=== PATIENT | female | born 1930 | race Caucasian/White ===

== ENCOUNTER 2016-09-02 21:36 | Emergency (ER) | payer OTHER, BC ==
--- NOTE | 2016-09-02 21:43 | PDOC ---
History of Present Illness - General History Source: Patient Exam Limitations: No Limitations - History of Present Illness Initial Comments: 09/02/16 21:43 The patient is a 86 year old female with a significant past medical history of HTN, HLD, who presents to the ED via EMS s/p fall. Patient states she slipt and fell when she was in her kitchen. She complains of left hand, left elbow, and right lower buttock pain. She denies head trauma, neck pain. She denies losing consciousness. She denies nausea, vomiting, diarrhea, hematochezia. <Morgan Rene - Last Filed: 09/02/16 21:43> - General History Source: Patient Exam Limitations: No Limitations <Donny Leary - Last Filed: 09/03/16 05:57> - General Chief Complaint: Pain, Acute Stated Complaint: TRIPPED AND FELL INJURING LEFT HAND, ELBOW AND BUT Time Seen by Provider: 09/02/16 21:39 Past History <Morgan Rene - Last Filed: 09/02/16 21:43> - Past Medical History Cardiac Disorders: Yes (BY PASS) HTN: Yes - Psycho/Social/Smoking Cessation Hx Anxiety: No Suicidal Ideation: No Smoking Status: No Smoking History: Never smoked Number of Cigarettes Smoked Daily: 0 <Donny Leary - Last Filed: 09/03/16 05:57> - Past Medical History Allergies/Adverse Reactions: Allergies Allergy/AdvReac Type Severity Reaction Status Date / Time acetaminophen [From Percocet] Allergy Verified 09/02/16 21:39 oxycodone HCl [From Percocet] Allergy Verified 09/02/16 21:39 Penicillins Allergy Verified 09/02/16 21:39 propoxyphene HCl Allergy Verified 09/02/16 21:39 [From Darvon] Home Medications: Ambulatory Orders Aspirin [ASA -] 81 mg PO DAILY 12/16/12 Metoprolol Succinate [Toprol XL] 50 mg PO HS 12/16/12 Metoprolol Succinate [Toprol XL] 100 mg PO DAILY 12/16/12 Omeprazole Magnesium [Prilosec (OTC)] 20 mg PO DAILY 12/16/12 Oxybutynin Chloride 5 mg PO BID 12/16/12 Quinapril HCl [Accupril] 5 mg PO DAILY 12/16/12 Simvastatin [Zocor] 40 mg PO HS 12/16/12 Review of Systems - Review of Systems Able to Perform ROS?: Yes Comments:: 09/02/16 21:44 GENERAL/CONSTITUTIONAL: No fever or chills. No weakness. HEAD, EYES, EARS, NOSE AND THROAT: No change in vision. No ear pain or discharge. No sore throat. CARDIOVASCULAR: No chest pain or shortness of breath. RESPIRATORY: No cough, wheezing, or hemoptysis. GASTROINTESTINAL: No nausea, vomiting, diarrhea or constipation. GENITOURINARY: No dysuria, frequency, or change in urination. MUSCULOSKELETAL: + lower back pain. + left hand pain. + left elbow pain. No joint or muscle swelling or pain. SKIN: No rash NEUROLOGIC: No headache, vertigo, loss of consciousness, or change in strength/ sensation. ENDOCRINE: No increased thirst. No abnormal weight change. HEMATOLOGIC/LYMPHATIC: No anemia, easy bleeding, or history of blood clots. ALLERGIC/IMMUNOLOGIC: No hives or skin allergy. <Morgan Rene - Last Filed: 09/02/16 21:43> *Physical Exam - Physical Exam Comments: 09/02/16 21:44 GENERAL: Awake, alert, and fully oriented, in no acute distress HEAD: No signs of trauma EYES: PERRLA, EOMI, sclera anicteric, conjunctiva clear ENT: Auricles normal inspection, hearing grossly normal, nares patent, oropharynx clear without exudates. Moist mucosa NECK: Normal ROM, supple, no lymphadenopathy, JVD, or masses LUNGS: Breath sounds equal, clear to auscultation bilaterally. No wheezes, and no crackles HEART: Regular rate and rhythm, normal S1 and S2, no murmurs, rubs or gallops ABDOMEN: Soft, nontender, normoactive bowel sounds. No guarding, no rebound. No masses EXTREMITIES: Normal range of motion, no edema. No clubbing or cyanosis. No cords, erythema, or tenderness NEUROLOGICAL: Cranial nerves II through XII grossly intact. Normal speech, normal gait SKIN: Warm, Dry, normal turgor, no rashes or lesions noted. <Morgan Rene - Last Filed: 09/02/16 21:43> ED Treatment Course - RADIOLOGY Radiology Studies Ordered: Category Date Time Status ELBOW-LEFT [RAD] Stat Radiology 09/02/16 21:40 Ordered HAND- LEFT [RAD] Stat Radiology 09/02/16 21:40 Ordered PELVIS [RAD] Stat Radiology 09/02/16 21:40 Ordered SPINE-LUMBAR SACRAL [RAD] Stat Radiology 09/02/16 21:40 Ordered <Donny Leary - Last Filed: 09/03/16 05:57> Medical Decision Making - Medical Decision Making 09/03/16 05:54 please note the following on PE: hematoma overlying dorsum of left hand without specific tenderness hematoma overlying dorsal surface of l elbow with abrasion no tenderness lower lumbar midline tenderness plain films without fx, as read by me local wound care for hematomas <Donny Leary - Last Filed: 09/03/16 05:57> *DC/Admit/Observation/Transfer - Attestations Scribe Attestion: 09/02/16 21:45 Documentation prepared by Morgan Rene, acting as medical i d sales for Donny Leary MD. <Morgan Rene - Last Filed: 09/02/16 21:43> <Donny Leary - Last Filed: 09/03/16 05:57> Diagnosis at time of Disposition: Hematoma - Discharge Dispostion Disposition: HOME Condition at time of disposition: Stable - Patient Instructions Printed Discharge Instructions: DI for Hematoma (Bruise)
[2016-09-02 21:58] VITALS: BP 140/75; PULSE 68; TEMP 98; BMI 33.1
== END 2016-09-02 23:47 | disposition home or self-care (01) ==
LOC: FER 21:36
DX: S50.02XA Contusion of left elbow, initial encounter (principal); S60.222A Contusion of left hand, initial encounter; W18.39XA Other fall on same level, initial encounter; Y93.9 Activity, unspecified; Y92.000 Kitchen of unspecified non-institutional (private) residence as the place of occurrence of the external cause; I10 Essential (primary) hypertension; E78.5 Hyperlipidemia, unspecified; Z95.1 Presence of aortocoronary bypass graft
CPT/HCPCS: 72100-TC; 72170-TC; 73070-TC-LT; 73130-TC-LT; 99281-25

== ENCOUNTER 2016-09-06 10:20 | Emergency (ER) | payer OTHER, BC ==
[2016-09-06 10:32] VITALS: BP 148/78; PULSE 83; TEMP 98.6; BMI 39.2
[2016-09-06] MEDS ORDERED: CEPHALEXIN MONOHYDRATE 500 MG CAPSULE (UD) PO ONE (10:41)
--- NOTE | 2016-09-06 10:42 | PDOC ---
History of Present Illness - General Chief Complaint: Pain Stated Complaint: LEFT ARM PAIN Time Seen by Provider: 09/06/16 10:26 - History of Present Illness Initial Comments: 09/06/16 10:45 Chief complaint: Increased pain and heat in the area of the left elbow History of present illness: Patient sustained an injury approximately 4 days ago , was treated in the emergency room for contusions of the left hand and elbow, no fracture was visualized, and the patient was treated with symptomatic care for contusions. Today she noted increased pain in the elbow with a sensation of warmth Review of systems: Denies fevers/chills, distal numbness tingling pain or weakness Past medical history: High blood pressure, elevated cholesterol, or Medications: Metoprolol, Accupril, simvastatin, oxybutynin ALLERGIES: Oxycodone, propoxyphene, and questionably penicillin. With regard to penicillin, the patient states that when she was very young she had an intramuscular injection that became inflamed at the injection site, and she was told she had a penicillin ALLERGY. There was no generalized rash or angioedema that she can recall. Social/family history reviewed and noncontributory Physical exam: Patient is alert oriented 3 well-developed well-nourished in no acute distress Afebrile, vital signs normal The left arm with old contusions and ecchymoses of the hand and elbow region. There is a 5 mm superficial abrasion that it appears to be healing over the olecranon, and what appears to be an olecranon bursitis, probably septic from the skin injury, which is tender and mildly indurated but without toyin fluctuance. There is full range of motion of the elbow, good pulses throughout the extremity, and no distal sensory or motor deficits Impression is olecranon bursitis, probably infected Plan empiric antibiotics, rest and elevation, warm compresses, and close follow- up. Consider aspiration if fluid accumulation or fluctuance appears. Patient fully ambulatory and without significant pain or other distress upon discharge to follow up as directed. Past History - Past Medical History Allergies/Adverse Reactions: Allergies Allergy/AdvReac Type Severity Reaction Status Date / Time oxycodone HCl [From Percocet] Allergy Verified 09/06/16 10:22 Penicillins Allergy Verified 09/06/16 10:22 propoxyphene HCl Allergy Verified 09/06/16 10:22 [From Darvon] Home Medications: Ambulatory Orders Aspirin [ASA -] 81 mg PO DAILY 12/16/12 Metoprolol Succinate [Toprol XL -] 50 mg PO AM 12/16/12 Metoprolol Succinate [Toprol XL -] 100 mg PO HS 12/16/12 Oxybutynin Chloride 5 mg PO BID 12/16/12 Quinapril HCl [Accupril -] 5 mg PO DAILY 12/16/12 Simvastatin [Zocor -] 40 mg PO HS 12/16/12 Cephalexin Monohydrate [Keflex] 500 mg PO Q6H #30 capsule 09/06/16 Cardiac Disorders: Yes (CAD) HTN: Yes - Surgical History Cardiac Surgery: Yes (VALVE REPLACEMENT, BYPASS SX) - Psycho/Social/Smoking Cessation Hx Anxiety: No Suicidal Ideation: No Smoking Status: No Smoking History: Never smoked Have you smoked in the past 12 months: No Number of Cigarettes Smoked Daily: 0 Hx Alcohol Use: No Drug/Substance Use Hx: No Substance Use Type: None *Physical Exam - Vital Signs Last Vital Signs Temp Pulse Resp BP Pulse Ox 98.6 F 83 18 148/78 96 09/06/16 10:20 09/06/16 10:20 09/06/16 10:20 09/06/16 10:20 09/06/16 10:20 *DC/Admit/Observation/Transfer Diagnosis at time of Disposition: Olecranon bursitis, left elbow - Discharge Dispostion Disposition: HOME Condition at time of disposition: Stable Admit: No - Prescriptions Prescriptions: Cephalexin Monohydrate [Keflex] 500 mg PO Q6H #30 capsule - Referrals Referrals: Ravinder Philip MD [Staff Physician] - 2 Days - Patient Instructions Printed Discharge Instructions: DI for Elbow Bursitis Additional Instructions: Rest and elevate left arm. Warm compresses. Antibiotics as directed. In 48 hours, if there is still pain, swelling, or redness, return to ER for recheck or see primary physician. If symptoms have resolved, continue
[2016-09-06] MEDS ORDERED: CEPHALEXIN MONOHYDRATE 500 MG CAPSULE (UD) ONE (10:47)
== END 2016-09-06 11:00 | disposition home or self-care (01) ==
LOC: FER 10:20
DX: M70.22 Olecranon bursitis, left elbow (principal); Y93.9 Activity, unspecified; I10 Essential (primary) hypertension; Z95.1 Presence of aortocoronary bypass graft; Z79.82 Long term (current) use of aspirin
CPT/HCPCS: 99283-25

== ENCOUNTER 2018-02-14 22:08 | Emergency (ER) | payer OTHER, BC ==
[2018-02-14 22:17] VITALS: BMI 39.2
--- NOTE | 2018-02-14 22:57 | PDOC ---
History of Present Illness - History of Present Illness Initial Comments: This patient is a 87 year old female with a PMHx of HTN, HLD, and arthritis, who was BIBA for head injury s/p fall. Patient states that her bathroom had flooded and she was trying to deal with that issue. She went to sit on a chair that tilts back and fell face forward. She was able to use life alert to call an ambulance. She states that she normally ambulates with a walker and cane. She states that she normally takes a baby aspirin but hasnt taken one in over a month. She denies any loss of consciousness, headache, neck pain (other than chronic issues), dysuria,fevers, chills, abdominal pain, cough, vomiting, diarrhea. Emergency contact: Shayna Ledesma (neighbor) [phone] PCP: Noel Owens - [address] [place] [address]. Social Hx: Lives at home alone. Surgical Hx: b/l total knee replacement. Heart valve replacement. Allergies: see nursing notes. <Angeline Loya - Last Filed: 02/14/18 23:52> <Oewn Diego - Last Filed: 02/15/18 06:46> - General Chief Complaint: Injury Stated Complaint: SLIP AND FALL Time Seen by Provider: 02/14/18 22:19 Past History <Angeline Loya - Last Filed: 02/14/18 23:52> - Past Medical History Cardiac Disorders: Yes (CAD) COPD: No HTN: Yes Other medical history: CHRONIC CELLULITIS - Surgical History Cardiac Surgery: Yes (VALVE REPLACEMENT, BYPASS SX) - Suicide/Smoking/Psychosocial Hx Smoking Status: No Smoking History: Never smoked Have you smoked in the past 12 months: No Number of Cigarettes Smoked Daily: 0 Hx Alcohol Use: No Drug/Substance Use Hx: No Substance Use Type: None <Owen Diego - Last Filed: 02/15/18 06:46> - Past Medical History Allergies/Adverse Reactions: Allergies Allergy/AdvReac Type Severity Reaction Status Date / Time oxycodone HCl [From Percocet] Allergy Verified 09/06/16 10:22 Penicillins Allergy Verified 09/06/16 10:22 propoxyphene HCl Allergy Verified 09/06/16 10:22 [From Darvon] Home Medications: Ambulatory Orders Aspirin [ASA -] 81 mg PO DAILY 12/16/12 Metoprolol Succinate [Toprol XL -] 50 mg PO AM 12/16/12 Metoprolol Succinate [Toprol XL -] 100 mg PO HS 12/16/12 Oxybutynin Chloride 5 mg PO BID 12/16/12 Quinapril HCl [Accupril -] 5 mg PO DAILY 12/16/12 Simvastatin [Zocor -] 40 mg PO HS 12/16/12 Cephalexin Monohydrate [Keflex] 500 mg PO Q6H #30 capsule 09/06/16 Review of Systems - Review of Systems Comments:: GENERAL/CONSTITUTIONAL: No fever or chills. No weakness. HEAD, EYES, EARS, NOSE AND THROAT: No change in vision. No ear pain or discharge. No sore throat. CARDIOVASCULAR: No chest pain or shortness of breath. RESPIRATORY: No cough, wheezing, or hemoptysis. GASTROINTESTINAL: No nausea, vomiting, diarrhea or constipation. GENITOURINARY: No dysuria, frequency, or change in urination. MUSCULOSKELETAL: No joint or muscle swelling or pain. No neck or back pain. SKIN: +lump on forehead. NEUROLOGIC: No headache, vertigo, loss of consciousness, or change in strength/ sensation. ENDOCRINE: No increased thirst. No abnormal weight change. HEMATOLOGIC/LYMPHATIC: No anemia, easy bleeding, or history of blood clots. ALLERGIC/IMMUNOLOGIC: No hives or skin allergy. <Agneline Loya - Last Filed: 02/14/18 23:52> *Physical Exam - Vital Signs Last Vital Signs Temp Pulse Resp BP Pulse Ox 98.1 F 90 18 144/67 98 02/14/18 22:11 02/14/18 22:11 02/14/18 22:11 02/14/18 22:11 02/14/18 22:11 - Physical Exam Comments: GENERAL: Awake, alert, and fully oriented, in no acute distress HEAD: Small right-sided forehead hematoma. EYES: PERRLA, EOMI, sclera anicteric, conjunctiva clear ENT: Abrasion to the bridge of the nose. Auricles normal inspection, hearing grossly normal, nares patent, oropharynx clear without exudates. Moist mucosa NECK: No c-spine tenderness. Normal ROM, supple, no lymphadenopathy, JVD, or masses LUNGS: Breath sounds equal, clear to auscultation bilaterally. No wheezes, and no crackles HEART: Regular rate and rhythm, normal S1 and S2, no murmurs, rubs or gallops ABDOMINOPELVIS: Pelvis is stable. No tenderness to hips. Soft, nontender, normoactive bowel sounds. No guarding, no rebound. No masses EXTREMITIES: Normal range of motion, no edema. No clubbing or cyanosis. No cords, erythema, or tenderness NEUROLOGICAL: Cranial nerves II through XII grossly intact. Normal speech, normal gait SKIN: Warm, Dry, normal turgor, no rashes noted. <Angeline Loya - Last Filed: 02/14/18 23:52> - Vital Signs Last Vital Signs Temp Pulse Resp BP Pulse Ox 98.1 F 90 18 144/67 98 02/14/18 22:11 02/14/18 22:11 02/14/18 22:11 02/14/18 22:11 02/14/18 22:11 <Owen Diego - Last Filed: 02/15/18 06:46> ED Treatment Course - RADIOLOGY Radiology Studies Ordered: Category Date Time Status HEAD CT WITHOUT CONTRAST [CT] Stat CT Scan 02/14/18 22:44 Ordered <Owen Diego - Last Filed: 02/15/18 06:46> Medical Decision Making - Medical Decision Making 02/14/18 23:51 A portion of this note was documented by scribe services under my direction. I have reviewed the details of the note, within reason, and agree with the documentation with the following case summary and management plan written by me. Patient treated in the ED. Patient arrives by ambulance to the emergency department. Nursing notes are reviewed and incorporated into the medical decision-making. Vital signs reviewed. Vital Signs Temp Pulse Resp BP Pulse Ox 98.1 F 90 18 144/67 98 02/14/18 22:11 02/14/18 22:11 02/14/18 22:11 02/14/18 22:11 02/14/18 22:11 87 year old female with Past medical history of arthritis, hypertension, hyperlipidemia, valve replacement presents with mechanical fall. The patient lives at home by herself and uses a walker. She is slipped and fell and landed and hit her head. No loss of conscious. No headache. Patient has last taken aspirin over a month ago. Denies any symptoms now. Patient was on the ground and activated the life alert. EMS came and brought the patient the ER. She denies any symptoms other than the hematoma on the forehead. There is no evidence of C-spine pain, pelvis or other injuries. We'll obtain a head CT and reassess. 02/15/18 01:[address] reviewed. No acute findings. 02/15/18 03:55 Pt ambulatory to the bathroom. She reports that she walks at baseline. The patient reports feeling well to ambulate. She requests to leave at [address] she can greet her neighbor when she goes home. Pt has no complaints and feels well. The patient has been observed for nearly 6 hours without any adverse events. Once patient is ambulatory with assistance (baseline), we will allow the patient to be discharged. <Owen Diego - Last Filed: 02/15/18 06:46> *DC/Admit/Observation/Transfer - Attestations Scribe Attestion: 02/14/18 23:13 Documentation prepared by Angeline Loya, acting as manager medical affairs for Owen Diego MD. <Angeline Loya - Last Filed: 02/14/18 23:52> - Discharge Dispostion Decision to Admit order: No <Owen Diego - Last Filed: 02/15/18 06:46> Diagnosis at time of Disposition: Fall Qualifiers: Encounter type: initial encounter Qualified Code(s): W19.XXXA - Unspecified fall, initial encounter Closed head injury Qualifiers: Encounter type: initial encounter Qualified Code(s): S09.90XA - Unspecified injury of head, initial encounter - Discharge Dispostion Disposition: HOME Condition at time of disposition: Stable - Referrals Referrals: Noel Waddell [Primary Care Provider] - - Patient Instructions Printed Discharge Instructions: How to Prevent Falls, DI for Closed Head Injury Additional Instructions: Your CT scan of your head is negative. You may be more sore tomorrow than today. Take 650 mg tylenol every 4 hours as needed for pain. If you have an uncontrollable headache, persistent vomiting, numbness, weakness , tingling, please return to the ER. - Post Discharge Activity
[2018-02-15 06:37] VITALS: BP 157/74; PULSE 96; TEMP 97.8
== END 2018-02-15 12:31 | disposition home or self-care (01) ==
LOC: FER 22:08
DX: S09.90XA Unspecified injury of head, initial encounter (principal); I10 Essential (primary) hypertension; I25.10 Atherosclerotic heart disease of native coronary artery without angina pectoris; E78.5 Hyperlipidemia, unspecified; M19.90 Unspecified osteoarthritis, unspecified site; Z95.2 Presence of prosthetic heart valve; Z88.8 Allergy status to other drugs, medicaments and biological substances; Z88.6 Allergy status to analgesic agent; Z79.82 Long term (current) use of aspirin; W07.XXXA Fall from chair, initial encounter; Y93.89 Activity, other specified; Y92.002 Bathroom of unspecified non-institutional (private) residence as the place of occurrence of the external cause
CPT/HCPCS: 70450-TC; 99282-25

== ENCOUNTER 2018-03-01 10:42 | Inpatient (IN) | payer OTHER, BC ==
--- NOTE | 2018-03-01 11:28 | PDOC ---
History of Present Illness - General Chief Complaint: Weakness Stated Complaint: CAN'T WALK Time Seen by Provider: 03/01/18 10:54 History Source: Patient Exam Limitations: No Limitations - History of Present Illness Initial Comments: 03/01/18 11:17 87 yo F with h/o htn hld valve replacement, bilat knee replacement and chronic leg swelling, arthritis here today from home because she was unable to get up from her chair. pt states she lives alone, has neighbors that are her health care proxies. who check in on her. she sleeps in her chair, today when neighbors came she couldn't get up from her chair. pt was noted to be wearing a hospital gown from prior discharge. found disheveled in poor hygeine. denies chest pain. no falls. no urinary complaints. stats unsure why she couldn't get up from her chair. denies any noted focal weaknes. states she was up and walking around day prior. NIH Stroke Scale - Last Known Well Date/Time & Onset Date Last Known Well: 02/28/18 - Initial Evaluation Level of consciousness: Alert Ask patient the month and their age: Answers both correctly Ask patient to open & close eyes; make fist and let go: Obeys both correctly Best gaze (horizontal eye movement): Normal Visual field testing: No visual field loss Facial paresis (Show teeth/raise eyebrows/close eyes tight): Normal symmetrical movement Motor Function: Left Arm: Normal Motor Function: Right Arm: Normal (extends arm 90 (or 45) degrees for 10 seconds without drift Motor Function: Left Leg: Normal (extends leg 30 degrees for 5 seconds without drift) Motor Function: Right Leg: Drift Limb Ataxia: No ataxia Sensory(Use pinprick test arms,legs,trunk,face/side to side): Normal Best language (Describe picture, name items, read sentences): No Aphasia Dysarthria (read several words): Normal articulation Extinction and Inattention: No abnormality - Total Score NIH Stroke Scale Score: 1 Past History - Past Medical History Allergies/Adverse Reactions: Allergies Allergy/AdvReac Type Severity Reaction Status Date / Time oxycodone HCl [From Percocet] Allergy Verified 03/01/18 11:04 Penicillins Allergy Verified 03/01/18 11:04 propoxyphene HCl Allergy Verified 03/01/18 11:04 [From Darvon] Home Medications: Ambulatory Orders Aspirin [ASA -] 81 mg PO DAILY 12/16/12 Simvastatin [Zocor -] 40 mg PO HS 12/16/12 Calcium Carb, Citrate/Vit D3 [Calcium + D3 ER Tablet] 1 each PO DAILY 03/01/18 Metoprolol Tartrate [Lopressor] 50 mg PO HS 03/01/18 Metoprolol Tartrate [Lopressor] 100 mg PO DAILY 03/01/18 Multivit,Calc,Mins/Iron/Folic [One-A-Day Women's] 1 each PO DAILY 03/01/18 Oxybutynin Chloride [Ditropan -] 5 mg PO BID 03/01/18 Quinapril HCl 10 mg PO DAILY 03/01/18 Cardiac Disorders: Yes (CAD) COPD: No HTN: Yes - Surgical History Cardiac Surgery: Yes (VALVE REPLACEMENT, BYPASS SX) - Suicide/Smoking/Psychosocial Hx Smoking Status: No Smoking History: Never smoked Have you smoked in the past 12 months: No Number of Cigarettes Smoked Daily: 0 Hx Alcohol Use: No Drug/Substance Use Hx: No Substance Use Type: None Review of Systems - Review of Systems Constitutional: No: Chills, Diaphoresis Respiratory: No: Cough, Orthopnea, Shortness of Breath Cardiac (ROS): No: Chest Pain, Edema : No: Burning, Dysuria Musculoskeletal: Yes: Muscle Weakness Neurological: Yes: Weakness. No: Headache All Other Systems: Reviewed and Negative *Physical Exam - Physical Exam Comments: 03/01/18 11:20 awake alert lungs clear bilaterally heart rrr no mrg. abd soft nt nd. ext wwp. bilat lower ext scaling, red, bilat brawning edema. 2 + dp/ pt. nuero awake alert oriented x 3. bilat upper strength 5/5. lower strength right leg 4+/ 5, left leg 5/5. speech clear. CN inact. Heart Score/ECG Review #1 General ECG Interpretation: Normal Rate (80), Normal Intervals, No acute ischemic changes Compared to previous ECG there are: Other (afib.) ED Treatment Course - LABORATORY CBC & Chemistry Diagram: 03/01/18 12:00 03/01/18 12:00 - RADIOLOGY Radiology Studies Ordered: Category Date Time Status HEAD CT WITHOUT CONTRAST [CT] Stat CT Scan 03/01/18 10:58 Ordered CHEST X-RAY PORTABLE* [RAD] Stat Radiology 03/01/18 10:59 Ordered Medical Decision Making - Medical Decision Making 03/01/18 11:28 differential cva, arthritis, anemia, electrolyte abnormality infection such as uti or pna, causing weakness. mi. plan ekg labs trop ua cxr . ct head. due to pt in poor hygein, unable to get up from chair lives alone, social concerns will admit for pt assessment. home safety eval. 03/01/18 13:38 pt cxr with opacification left lung base. mild elevated wbc. ct head negative. ekg with afib. no st elevation or depression labs otherwise unremarkable. due to concerns for social well being, inability to walk and lives alone, plus possble pneumonia will admit. uncertain if leg weakness is new or old. consider mri on admission. *DC/Admit/Observation/Transfer Diagnosis at time of Disposition: Weakness, Pneumonia - Discharge Dispostion Condition at time of disposition: Good Decision to Admit order: Yes - Referrals Referrals: Noel Waddell [Primary Care Provider] - - Patient Instructions - Post Discharge Activity
[2018-03-01 11:56] LABS: PH,URINE 6.5 (4.5-8); URINE APPEARANCE Clear; URINE BILIRUBIN Negative (NEGATIVE); URINE COLOR Yellow; URINE GLUCOSE (UA) Negative (NEGATIVE); URINE KETONE 2+ (NEGATIVE); URINE LEUK ESTERASE Negative (NEGATIVE); URINE NITRITE Negative (NEGATIVE); URINE PROTEIN Negative (NEGATIVE); URINE UROBILINOGEN 0.2 (0.2-1.0)
[2018-03-01 12:18] LABS: EOS % 0.3 % (0-4.5); HEMATOCRIT 37.7 % (32.4-45.2); HEMOGLOBIN 12.6 GM/dl (10.7-15.3); LYMPH % 9.3 % (8-40); MCH 31.1 pg (25.7-33.7); MCHC 33.5 g/dl (32.0-36.0); MEAN CELL VOLUME 92.7 fl (80-96); MEAN PLT VOLUME 8.4 fl (7.5-11.1); NEUT % 85.4 % (42.8-82.8); PLATELET COUNT 327 K/MM3 (134-434); RBC 4.06 M/mm3 (3.60-5.2); RDW 12.2 % (11.6-15.6); WHITE BLOOD COUNT 11.1 K/mm3 (4.0-10.8)
[2018-03-01 12:29] LABS: ACTIVATED PTT 32.1 SECONDS (25.2-36.5)
[2018-03-01 12:31] LABS: ALBUMIN 3.2 g/dl (3.5-5.0); ALK PHOS 123 U/L (32-92); ANION GAP 9 MMOL/L (8-16); BLOOD UREA NITROGEN 11 mg/dl (7-18); CHLORIDE 94 mmol/L (98-107); CO2 30 mmol/L (22-28); CREATININE 0.8 mg/dl (0.6-1.3); GLUCOSE,RANDOM 79 mg/dl (74-106); POTASSIUM 3.3 mmol/L (3.5-5.1); SGOT/AST 46 U/L (10-42); SGPT/ALT 21 U/L (10-40); SODIUM 133 mmol/L (136-145); TOT PROT 5.8 g/dl (6.4-8.3)
[2018-03-01 12:33] LABS: INR 1.16 (0.82-1.09)
[2018-03-01] MEDS ORDERED: ACETAMINOPHEN 325 MG TABLET (FP) PO PRN (14:31)
[2018-03-01] MEDS ORDERED: POTASSIUM CHLORIDE TABS 20 MEQ TABLET.ER (FP) PO ONE (14:33)
[2018-03-01 15:24] LABS: EPI CELLS FEW /HPF; URINE WBC 0-2 (0-5)
[2018-03-01 15:25] LABS: URINE HYALINE CAST 0-1 /lpf
[2018-03-01 17:01] VITALS: BMI 40.3
--- NOTE | 2018-03-01 17:24 | HP ---
CHIEF COMPLAINT: Leg weakness PCP: Dr. Noel Waddell HISTORY OF PRESENT ILLNESS: 87 year old female with a PMH of HTN, HLD, Arthritis, and Urinary incontinence presented to the ED c/o right leg weakness that started this AM. Patient sleeps in a recliner at her home where she lives alone. When she woke up this morning she was unable to stand up from the chair. When the neighbors, who are her health care proxies, came by to check on her, she was still unable to get up from the chair. They also observed her wearing a hospital gown from from a previous visit to 2 weeks prior for a fall. She was brought into the ED and found to have slightly elevated WBC and a CXR +LLL infiltrate, she was given a dose of Levaquin 750 mg IV. Her potassium was slightly depleted at 3.3 and she was given [address] of head, ECG and UA unremarkable. Recent Travel: No PAST MEDICAL HISTORY: HTN HLD Arthritis Urinary incontinence PAST SURGICAL HISTORY: Valve replacement CABG B/l knee replacement Social History: Lives alone; no children. Neighbors are healthcare proxys and are very involved i.e. bringing groceries to the house. Smoking: Never Alcohol: Never Drugs: Never Family History: Mother: heart disease, age 73 Father: heart disease, age 52 Brother: Pancreatic disease in his 70s Allergies oxycodone HCl [From Percocet] Allergy (Verified 03/01/18 11:04) Penicillins Allergy (Verified 03/01/18 11:04) propoxyphene HCl [From Darvon] Allergy (Verified 03/01/18 11:04) HOME MEDICATIONS: Home Medications Medication Instructions Recorded Aspirin [ASA -] 81 mg PO DAILY 12/16/12 Simvastatin [Zocor -] 40 mg PO HS 12/16/12 Calcium Carb, Citrate/Vit D3 1 each PO DAILY 03/01/18 [Calcium + D3 ER Tablet] Metoprolol Tartrate [Lopressor] 50 mg PO HS 03/01/18 Metoprolol Tartrate [Lopressor] 100 mg PO DAILY 03/01/18 Multivit,Calc,Mins/Iron/Folic 1 each PO DAILY 03/01/18 [One-A-Day Women's] Oxybutynin Chloride [Ditropan -] 5 mg PO BID 03/01/18 Quinapril HCl 10 mg PO DAILY 03/01/18 REVIEW OF SYSTEMS CONSTITUTIONAL: (+) Leg weakness Absent: fever, chills, diaphoresis, generalized weakness, malaise, loss of appetite, weight change HEENT: Absent: rhinorrhea, nasal congestion, throat pain, throat swelling, difficulty swallowing, mouth swelling, ear pain, eye pain, visual changes CARDIOVASCULAR: Absent: chest pain, syncope, palpitations, irregular heart rate, lightheadedness , peripheral edema RESPIRATORY: Absent: cough, shortness of breath, dyspnea with exertion, orthopnea, wheezing, stridor, hemoptysis GASTROINTESTINAL: Absent: abdominal pain, abdominal distension, nausea, vomiting, diarrhea, constipation, melena, hematochezia GENITOURINARY: Absent: dysuria, frequency, urgency, hesitancy, hematuria, flank pain, genital pain MUSCULOSKELETAL: (+) arthralgia, joint swelling Absent: myalgia, back pain, neck pain SKIN: Absent: rash, itching, pallor HEMATOLOGIC/IMMUNOLOGIC: Absent: easy bleeding, easy bruising, lymphadenopathy, frequent infections ENDOCRINE: Absent: unexplained weight gain, unexplained weight loss, heat intolerance, cold intolerance NEUROLOGIC: Absent: headache, focal weakness or paresthesias, dizziness, unsteady gait, seizure, mental status changes, bladder or bowel incontinence PSYCHIATRIC: Absent: anxiety, depression, suicidal or homicidal ideation, hallucinations. PHYSICAL EXAMINATION Vital Signs - 24 hr 03/01/18 03/01/18 03/01/18 10:53 12:59 15:30 Temperature 97.7 F 97.9 F Pulse Rate 75 Pulse Rate [ 75 80 Apical] Respiratory 17 17 16 Rate Blood Pressure 117/63 Blood Pressure 120/66 129/67 [Right Arm] O2 Sat by Pulse 94 L 97 97 Oximetry (%) 03/01/18 16:35 Temperature 98.1 F Pulse Rate 81 Pulse Rate [ Apical] Respiratory 16 Rate Blood Pressure 119/72 Blood Pressure [Right Arm] O2 Sat by Pulse Oximetry (%) GENERAL: Elderly female, disheveled appearance, awake, alert, and fully oriented , in no acute distress. HEAD: Normal with no signs of trauma. EYES: +Glasses, pupils equal, round and reactive to light, extraocular movements intact, sclera anicteric, conjunctiva clear. No lid lag. EARS, NOSE, THROAT: Nares patent, oropharynx clear without exudates. Dry mucous membranes. NECK: Normal range of motion, supple without lymphadenopathy, JVD, or masses. LUNGS: Faint crackles to LLL, no wheezes, no accessory muscle use. HEART: Regular rate and rhythm, normal S1 and S2 without murmur, rub or gallop. ABDOMEN: Soft, nontender, not distended, normoactive bowel sounds, no guarding, no rebound, no masses. No hepatomegaly or splenomegaly. MUSCULOSKELETAL: Normal range of motion at all joints. No bony deformities or tenderness. No CVA tenderness. UPPER EXTREMITIES: Enlarged DIP and PIP joints b/l, 2+ pulses, warm, well- perfused. No cyanosis. No clubbing. LOWER EXTREMITIES: +2 pitting edema, erythema and scaly skin to b/l LE, No calf tenderness. NEUROLOGICAL: No facial droop, tongue midline, normal speech. Gait not observed. PSYCHIATRIC: Cooperative. Good eye contact. Appropriate mood and affect. SKIN: Warm, dry, normal turgor, no rashes or lesions noted, normal capillary refill. Laboratory Results - last 24 hr 03/01/18 03/01/18 03/01/18 11:10 12:00 12:00 WBC 11.1 H RBC 4.06 Hgb 12.6 Hct 37.7 MCV 92.7 MCH 31.1 MCHC 33.5 RDW 12.2 Plt Count 327 MPV 8.4 Absolute Neuts (auto) 9.6 Neutrophils % 85.4 H Lymphocytes % 9.3 Monocytes % 4.0 Eosinophils % 0.3 Basophils % 1.0 PT with INR INR PTT (Actin FS) Sodium 133 L Potassium 3.3 L Chloride 94 L Carbon Dioxide 30 H Anion Gap 9 BUN 11 Creatinine 0.8 Creat Clearance w eGFR > 60 Random Glucose 79 Calcium 9.0 Total Bilirubin 1.0 AST 46 H ALT 21 Alkaline Phosphatase 123 H Troponin I Total Protein 5.8 L Albumin 3.2 L Urine Color Yellow Urine Appearance Clear Urine pH 6.5 Ur Specific Rice 1.015 Urine Protein Negative Urine Glucose (UA) Negative Urine Ketones 2+ H Urine Blood 2+ H Urine Nitrite Negative Urine Bilirubin Negative Urine Urobilinogen 0.2 Ur Leukocyte Esterase Negative Urine RBC 5-10 Urine WBC 0-2 Ur Epithelial Cells Few Hyaline Casts 0-1 03/01/18 03/01/18 12:00 12:00 WBC RBC Hgb Hct MCV MCH MCHC RDW Plt Count MPV Absolute Neuts (auto) Neutrophils % Lymphocytes % Monocytes % Eosinophils % Basophils % PT with INR 13.0 INR 1.16 PTT (Actin FS) 32.1 Sodium Potassium Chloride Carbon Dioxide Anion Gap BUN Creatinine Creat Clearance w eGFR Random Glucose Calcium Total Bilirubin AST ALT Alkaline Phosphatase Troponin I 0.03 Total Protein Albumin Urine Color Urine Appearance Urine pH Ur Specific Rice Urine Protein Urine Glucose (UA) Urine Ketones Urine Blood Urine Nitrite Urine Bilirubin Urine Urobilinogen Ur Leukocyte Esterase Urine RBC Urine WBC Ur Epithelial Cells Hyaline Casts ECG Normal Rate (80), Normal Intervals, No acute ischemic changes CXR Sclerotic knob and increased markings at the left base Head CT without Contrast No acute bleed or fracture, no CT evidence of acute infarct. ASSESSMENT/PLAN: 87 year old female with a PMH of HTN, HLD, Arthritis, and Urinary incontinence presented to the ED c/o right leg weakness that started this AM. She was admitted for PNA. Community Acquired Pneumonia --Levaquin 500 mg IVP --Blood culture pending Right leg weakness -New onset, no clear cardiac or neurological etiology, patient with a Hx of OA and b/l knee replacement. -PT consult ordered -Consult with case therapist regarding additional home visitor services as patient is declining physically and lives alone. 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 FULL CODE Visit type - Emergency Visit Emergency Visit: Yes ED Registration Date: 03/01/18 Care time: The patient presented to the Emergency Department on the above date and was hospitalized for further evaluation of their emergent condition. - New Patient This patient is new to me today: Yes Date on this admission: 03/01/18 - Critical Care Critical Care patient: No
[2018-03-01] MEDS: ATORVASTATIN CA 20 MG TABLET (FP) PO SCH (21:52)
[2018-03-01] MEDS: MINERAL OIL/PET HY-PHL TOPICAL OINTMENT 454 GM JAR TP SCH (21:56)
[2018-03-01] MEDS: HEPARIN NA (PORCINE) 5,000 UNITS/ML 1ML VIAL SQ SCH (21:56)
[2018-03-01] MEDS: OXYBUTYNIN CHLORIDE 5 MG TABLET PO SCH (21:57)
[2018-03-01] MEDS: METOPROLOL TARTRATE 50 MG TABLET (FP) PO SCH (22:00)
[2018-03-01] MEDS ORDERED: PATIENT'S OWN MEDICATION (NON-FORMULARY) (Simvastatin 40 MG) PO SCH (22:00)
[2018-03-02] MEDS: HEPARIN NA (PORCINE) 5,000 UNITS/ML 1ML VIAL SQ SCH (06:54)
[2018-03-02 09:14] LABS: EOS % 0.5 % (0-4.5); HEMATOCRIT 32.1 % (32.4-45.2); HEMOGLOBIN 10.6 GM/dl (10.7-15.3); LYMPH % 11.9 % (8-40); MCH 30.7 pg (25.7-33.7); MCHC 33.1 g/dl (32.0-36.0); MEAN CELL VOLUME 92.7 fl (80-96); MEAN PLT VOLUME 9.3 fl (7.5-11.1); NEUT % 80.6 % (42.8-82.8); PLATELET COUNT 239 K/MM3 (134-434); RBC 3.47 M/mm3 (3.60-5.2); RDW 12.6 % (11.6-15.6); WHITE BLOOD COUNT 7.5 K/mm3 (4.0-10.8)
[2018-03-02 09:24] LABS: ANION GAP 7 MMOL/L (8-16); BLOOD UREA NITROGEN 15 mg/dl (7-18); CALCIUM 8.4 mg/dl (8.4-10.2); CHLORIDE 98 mmol/L (98-107); CO2 27 mmol/L (22-28); CREATININE 1.2 mg/dl (0.6-1.3); GLUCOSE,RANDOM 68 mg/dl (74-106); POTASSIUM 4.1 mmol/L (3.5-5.1); SODIUM 132 mmol/L (136-145)
[2018-03-02] MEDS ORDERED: FOLIC PO SCH (10:00)
[2018-03-02] MEDS: QUINAPRIL HCL 10 MG TABLET (FP) PO SCH (10:00)
[2018-03-02] MEDS ORDERED: [UNRECOGNIZED DRUG - OTHER] PO SCH (10:00)
[2018-03-02] MEDS ORDERED: PATIENT'S OWN MEDICATION (NON-FORMULARY) (Calcium Carb, Citrate/Vit D3 [Calcium + D3 Er Ta PO SCH (10:00)
[2018-03-02] MEDS ORDERED: MULTIVIT CALC MINS PO SCH (10:00)
[2018-03-02] MEDS ORDERED: IRON PO SCH (10:00)
[2018-03-02] MEDS: MINERAL OIL/PET HY-PHL TOPICAL OINTMENT 454 GM JAR TP SCH ×2 (10:13→21:30)
[2018-03-02] MEDS: ASPIRIN 81 MG CHEWABLE TABLETS PO SCH (10:50)
[2018-03-02] MEDS: METOPROLOL TARTRATE 50 MG TABLET (FP) PO SCH ×2 (10:50→21:29)
[2018-03-02] MEDS: OXYBUTYNIN CHLORIDE 5 MG TABLET PO SCH ×2 (10:50→21:29)
[2018-03-02] MEDS: CALCIUM 500MG/VIT-D 200 UNITS COMBO TABLET (FP) PO SCH (10:50)
[2018-03-02] MEDS: MULTIVITAMINS (DAILY MVI) TABLET (FP) PO SCH (10:50)
--- NOTE | 2018-03-02 11:11 | EKG ---
Test Reason : Blood Pressure : / mmHG Vent. Rate : 080 BPM Atrial Rate : 072 BPM P-R Int : 000 ms QRS Dur : 082 ms QT Int : 392 ms P-R-T Axes : 000 065 010 degrees QTc Int : 452 ms ATRIAL FIBRILLATION ABNORMAL ECG NO PREVIOUS ECGS AVAILABLE Confirmed by LACI CARNEY MD ([id number]) on 03/02/2018 11:11:30 AM Referred By: Antoine Bryson Confirmed By:LACI CARNEY MD
[2018-03-02] MEDS ORDERED: HEPARIN NA (PORCINE) 5,000 UNITS/ML 1ML VIAL IVPUSH PRN ×2 (12:29)
[2018-03-02] MEDS ORDERED: HEPARIN INFUSION - 25,000 UNITS/500 ML INFUS.BAG IVPB SCH (12:30)
--- NOTE | 2018-03-02 12:32 | PN ---
Progress Note (short form) - Note Progress Note: Subjective: The patient was seen and examined at the bedside, she reports she was unable to get out of her chair which is what prompted her to come to the ED. She denies any weakness or numbness. A.fib on EKG. [id number] 4, will start heparin gtt. F/u ECHO. Trend trops. Patient denies hx of a.fib Current Medications Generic Name Dose Route Start Last Admin Trade Name Freq PRN Reason Stop Dose Admin Acetaminophen 650 mg 03/01/18 14:31 Tylenol - PO Q4H PRN PAIN Aspirin 81 mg 03/02/18 10:00 03/02/18 10:50 Asa - PO 81 mg DAILY SARAH Administration Atorvastatin Calcium 20 mg 03/01/18 22:00 03/01/18 21:52 Lipitor - PO 20 mg HS SARAH Administration Calcium Carbonate/Cholecalciferol 1 tab 03/02/18 10:00 03/02/18 10:50 Os-Arslan 500+D - PO 1 tab DAILY SARAH Administration Emollient Ointment 1 applic 03/01/18 22:00 03/02/18 10:13 Aquaphor - TP 1 applic BID SARAH Administration Heparin Sodium (Porcine) 5,000 unit 03/01/18 22:00 03/02/18 06:54 Heparin - SQ 5,000 unit TID SARAH Administration Heparin Sodium (Porcine) 1,000 unit 03/02/18 12:29 Heparin - IVPUSH PRN PRN Heparin Heparin Sodium (Porcine) 5,000 unit 03/02/18 12:29 Heparin - IVPUSH PRN PRN Heparin Levofloxacin 500 mg in 100 mls @ 100 mls/hr 03/02/18 08:00 03/02/18 08:12 Levaquin 500 Mg Premixed Ivpb - IVPB 100 mls/hr DAILY@0800 [facility] Administration Protocol Heparin Sodium/Dextrose 25,000 units in 500 mls @ 20 mls/hr 03/02/18 12:30 Heparin Infusion - IVPB TITR [facility] Protocol 1,000 UNITS/HR Metoprolol Tartrate 50 mg 03/01/18 22:00 03/01/18 22:00 Lopressor - PO Not Given HS SARAH Metoprolol Tartrate 100 mg 03/02/18 10:00 03/02/18 10:50 Lopressor - PO 100 mg DAILY SARAH Administration Multivitamins/Minerals/Vitamin C 1 tab 03/02/18 10:00 03/02/18 10:50 Tab-A-Vit - PO 1 tab DAILY SARAH Administration Oxybutynin Chloride 5 mg 03/01/18 22:00 03/02/18 10:50 Ditropan - PO 5 mg BID SARAH Administration Quinapril HCl 10 mg 03/02/18 10:00 Accupril - PO DAILY SARAH Objective: Vital Signs Period Temp Pulse Resp BP Sys/Rhodes Pulse Ox Last 24 Hr 97.9 F-99.2 F 75-101 16-18 105-139/50-72 95-97 Physical Exam: General: NAD Lungs: CTA anteriorly Heart: Irregular rhythm. S1S2 Abd: Soft, non-tender, non-distended Ext: B/l lower extremity 1+ edema Neuro: No focal deficits CBCD WBC 7.5 K/mm3 (4.0-10.8) 03/02/18 07:00 RBC 3.47 M/mm3 (3.60-5.2) L 03/02/18 07:00 Hgb 10.6 GM/dl (10.7-15.3) L 03/02/18 07:00 Hct 32.1 % (32.4-45.2) L 03/02/18 07:00 MCV 92.7 fl (80-96) 03/02/18 07:00 MCHC 33.1 g/dl (32.0-36.0) 03/02/18 07:00 RDW 12.6 % (11.6-15.6) 03/02/18 07:00 Plt Count 239 K/MM3 (134-434) 03/02/18 07:00 MPV 9.3 fl (7.5-11.1) 03/02/18 07:00 CMP Sodium 132 mmol/L (136-145) L 03/02/18 06:00 Potassium 4.1 mmol/L (3.5-5.1) D 03/02/18 06:00 Chloride 98 mmol/L (98-107) 03/02/18 06:00 Carbon Dioxide 27 mmol/L (22-28) 03/02/18 06:00 Anion Gap 7 MMOL/L (8-16) L 03/02/18 06:00 BUN 15 mg/dl (7-18) 03/02/18 06:00 Creatinine 1.2 mg/dl (0.6-1.3) 03/02/18 06:00 Creat Clearance w eGFR 42.50 (>60) 03/02/18 06:00 Random Glucose 68 mg/dl (74-106) L 03/02/18 06:00 Calcium 8.4 mg/dl (8.4-10.2) 03/02/18 06:00 Total Bilirubin 1.0 mg/dl (0.2-1.0) 03/01/18 12:00 AST 46 U/L (10-42) H 03/01/18 12:00 ALT 21 U/L (10-40) 03/01/18 12:00 Alkaline Phosphatase 123 U/L (32-92) H 03/01/18 12:00 Total Protein 5.8 g/dl (6.4-8.3) L 03/01/18 12:00 Albumin 3.2 g/dl (3.5-5.0) L 03/01/18 12:00 CARDIAC ENZYMES Troponin I 0.04 ng/ml (0.00-0.05) 03/01/18 20:00 Microbiology 03/01/18 11:10 Urine - Urine Clean Catch Urine Culture - Final NO GROWTH OBTAINED Assessment: This is an 87 year old female with PMHx of HTN, HLD, Arthritis, and urinary incontinence who presented to the ED after being unable to get out of her chair. Plan: 1) New onset A.fib - Patient denies hx of a.fib - HR controlled - [id number] score 4. Discussed with patient risks/benefits of anticoagulation. Patient is aware of all and has decided to start anticoagulation. She denies a hx of GI bleeding - Start Heparin gtt - Cardiac monitoring - Trend trop: 0.02->0.04 - F/u ECHO - F/u cardiology consult 2) Difficulty getting out of chair - Patient denies any weakness or numbness. She reports she just "couldn't get up ". Unable to provide more detail - F/u PT evaluation - Patient may benefit from SNF, however she states she "will not go to a rehab" 3) Possible LLL pneumonia - Repeat chest x-ray - Patient was place on empiric Levaquin. Will continue for now - WBC wnl 4) HTN - Continue Metoprolol. Consider changing to Toprol XL if RVR 5) Hyperlipidemia - Continue Lipitor - Check lipid panel 6) F/E/N: - Soft diet: patient does not have her dentures - Monitor electrolytes 7) Prophylaxis: - Start Heparin gtt - PT evaluation 8) Dispo: - Requires continued inpatient care CODE STATUS: FULL CODE Visit type - Emergency Visit Emergency Visit: Yes ED Registration Date: 03/01/18 Care time: The patient presented to the Emergency Department on the above date and was hospitalized for further evaluation of their emergent condition. - New Patient This patient is new to me today: Yes Date on this admission: 03/02/18 - Critical Care Critical Care patient: No
[2018-03-02] MEDS ORDERED: HEPARIN NA (PORCINE) 5,000 UNITS/ML 1ML VIAL IVPUSH ONE (13:06)
[2018-03-02] MEDS: ATORVASTATIN CA 20 MG TABLET (FP) PO SCH (21:29)
[2018-03-02 23:21] LABS: ANION GAP 4 MMOL/L (8-16); CALCIUM 8.1 mg/dl (8.4-10.2); CHLORIDE 98 mmol/L (98-107); CO2 30 mmol/L (22-28); GLUCOSE,RANDOM 106 mg/dl (74-106); POTASSIUM 3.8 mmol/L (3.5-5.1); SODIUM 132 mmol/L (136-145)
[2018-03-02 23:43] LABS: BLOOD UREA NITROGEN 19 mg/dl (7-18); CREATININE 1.2 mg/dl (0.6-1.3)
[2018-03-03 06:00] LABS: BASO % 0.7 % (0-2.0); EOS % 3.6 % (0-4.5); HEMOGLOBIN 10.9 GM/dL (10.7-15.3); MCH 30.4 pg (25.7-33.7); MONO % 10.5 % (3.8-10.2); NEUT % 64.2 % (42.8-82.8); PLATELET COUNT 214 K/MM3 (134-434); RBC 3.58 M/mm3 (3.60-5.2); RDW 13.4 % (11.6-15.6); WHITE BLOOD COUNT 7.4 K/mm3 (4.0-10.0)
[2018-03-03 06:39] LABS: ALBUMIN 2.3 g/dl (3.4-5.0); ALK PHOS 100 U/L (45-117); ANION GAP 8 MMOL/L (8-16); BILIRUBIN,TOTAL 0.4 mg/dL (0.2-1); BLOOD UREA NITROGEN 18 mg/dL (7-18); CALCIUM 7.9 mg/dL (8.5-10.1); CHLORIDE 102 mmol/L (98-107); CHOLESTEROL 125 mg/dL (50-200); CO2 29 mmol/L (21-32); GLUCOSE,RANDOM 84 mg/dL (74-106); HDL CHOLESTEROL 67 mg/dL (40-60); MAGNESIUM 1.8 mg/dL (1.8-2.4); PHOSPHOROUS 3.1 mg/dL (2.5-4.9); SGOT/AST 32 U/L (15-37); SGPT/ALT 21 U/L (13-61); SODIUM 140 mmol/L (136-145); TOT PROT 4.8 g/dl (6.4-8.2); TRIGLYCERIDES 64 mg/dL (0-150)
--- NOTE | 2018-03-03 09:21 | CON.CARD ---
Consult Consult Specialty:: Cardiology Referred by:: [facility] Reason for Consultation:: Newly diagnosed afib - History of Present Illness Chief Complaint: Weakness History of Present Illness: 87 year old female with a PMH of HTN, HLD, Arthritis, and Urinary incontinence presented to the ED c/o right leg weakness and unable to get up from the chair. Initially found to have slightly elevated WBC and a CXR +LLL infiltrate, she was given a dose of Levaquin 750 mg IV. Her potassium was slightly depleted at 3.3 and she was given [address] of head, ECG and UA unremarkable. Noted to have newly diagnosed A.fib on EKG. [id number] 4, started heparin gtt. F/u ECHO. Trops elevated but peaked. Patient denies hx of a.fib - History Source History Provided By: Patient Limitations to Obtaining History: No Limitations - Past Medical History ...: No - Alcohol/Substance Use Hx Alcohol Use: No - Smoking History Smoking history: Never smoked Have you smoked in the past 12 months: No Aproximately how many cigarettes per day: 0 Home Medications - Allergies Allergies/Adverse Reactions: Allergies Allergy/AdvReac Type Severity Reaction Status Date / Time oxycodone HCl [From Percocet] Allergy Verified 03/01/18 11:04 Penicillins Allergy Verified 03/01/18 11:04 propoxyphene HCl Allergy Verified 03/01/18 11:04 [From Darvon] - Home Medications Home Medications: Ambulatory Orders Aspirin [ASA -] 81 mg PO DAILY 12/16/12 Simvastatin [Zocor -] 40 mg PO HS 12/16/12 Calcium Carb, Citrate/Vit D3 [Calcium + D3 ER Tablet] 1 each PO DAILY 03/01/18 Metoprolol Tartrate [Lopressor] 50 mg PO HS 03/01/18 Metoprolol Tartrate [Lopressor] 100 mg PO DAILY 03/01/18 Multivit,Calc,Mins/Iron/Folic [One-A-Day Women's] 1 each PO DAILY 03/01/18 Oxybutynin Chloride [Ditropan -] 5 mg PO BID 03/01/18 Quinapril HCl 10 mg PO DAILY 03/01/18 Family Disease History - Family Disease History Family History: Unremarkable Review of Systems - Review of Systems Constitutional: reports: Weakness HENT: reports: No Symptoms Neck: reports: No Symptoms Cardiovascular: reports: Shortness of Breath Respiratory: reports: SOB on Exertion Gastrointestinal: reports: No Symptoms Genitourinary: reports: No Symptoms Musculoskeletal: reports: No Symptoms Integumentary: reports: No Symptoms Vital Signs: Vital Signs Temperature 97.8 F 03/03/18 06:00 Pulse Rate 72 03/03/18 06:00 Respiratory Rate 19 03/03/18 06:00 Blood Pressure 135/61 03/03/18 06:00 O2 Sat by Pulse Oximetry (%) 100 03/03/18 06:00 Constitutional: Yes: No Distress, Calm, Thin Neck: Yes: Supple Respiratory: Yes: Regular, Diminished, On Nasal O2 Gastrointestinal: Yes: Normal Bowel Sounds, Soft Cardiovascular: Yes: Pulse Irregular JVD: No Carotid Bruit: No Heart Sounds: Yes: S1, S2 Murmur: Yes: Systolic Murmur, Grade 1 Edema: No - Other Data Labs, Other Data: CBC, BMP 03/03/18 04:30 03/03/18 04:30 INR, PTT INR 1.16 (0.82-1.09) 03/01/18 12:00 Troponin, BNP 03/02/18 03/02/18 03/03/18 16:30 22:30 04:30 Troponin I 0.50 H 1.93 H* 0.17 H B-Natriuretic Peptide 03/03/18 04:30 Troponin I B-Natriuretic Peptide 5551.0 H Troponin, BNP 03/02/18 03/02/18 03/03/18 16:30 22:30 04:30 Troponin I 0.50 H 1.93 H* 0.17 H B-Natriuretic Peptide 03/03/18 04:30 Troponin I B-Natriuretic Peptide 5551.0 H Afib @ 80 Imaging - Results Chest X-ray: Report Reviewed (Congestion, left base ATX with effusion) Cat Scan: Report Reviewed (HCT: No acute stroke or bleed) Problem List - Problems (1) Atrial fibrillation Code(s): I48.91 - UNSPECIFIED ATRIAL FIBRILLATION Qualifiers: Atrial fibrillation type: paroxysmal Qualified Code(s): I48.0 - Paroxysmal atrial fibrillation (2) Acute on chronic diastolic heart failure Code(s): I50.33 - ACUTE ON CHRONIC DIASTOLIC (CONGESTIVE) HEART FAILURE (3) Demand ischemia Code(s): I24.8 - OTHER FORMS OF ACUTE ISCHEMIC HEART DISEASE (4) Hypertensive cardiomegaly with heart failure Code(s): I11.0 - HYPERTENSIVE HEART DISEASE WITH HEART FAILURE (5) Hyperlipidemia Code(s): E78.5 - HYPERLIPIDEMIA, UNSPECIFIED Qualifiers: Hyperlipidemia type: pure hypercholesterolemia Qualified Code(s): E78.00 - Pure hypercholesterolemia, unspecified; E78.0 - Pure hypercholesterolemia (6) Weakness Code(s): R53.1 - WEAKNESS Assessment/Plan 1. Newly diagnosed afib [id number] 2. CAD, demand ischemia 3. Acute on chronic diastolic failure 4. Weakness, r/o stroke 5. Doubt PNA 6. HTN/HCVD 7. Hyperlipidemia P:1. F/u brain MRI 2. Heparin gtt->Eliquis 5 bid (wt>60 kg, Cr<1.0) 3. Trops have peaked 4. IV diuresis with monitor diuretic response, renal function and electrolytes 5. Consider observe off abx 6. Continue Accupril 10 qd, Lopressor 100/50 qd, Lipitor 20 qd and Accupril 10 qd as hemodynamics tolerate 7. F/u echocardiogram 8. Ischemia evaluation with stress testing may be performed as outpatient, thank you for consultative opportunity
--- NOTE | 2018-03-03 09:50 | PN ---
Physical Exam: SUBJECTIVE: Patient seen and examined, reports generalized weakness, denies any chest pain or shortness of breath. OBJECTIVE: patient is a 87 year old female with PMHx of HTN, HLD, Arthritis, and urinary incontinence, patient was admitted from the emergency department for elevated troponin and new onset afib. Vital Signs Period Temp Pulse Resp BP Sys/Rhodes Pulse Ox Last 24 Hr 97.4 F-99.0 F 72-90 18-19 112-135/42-61 95-100 GENERAL: The patient is awake, alert, and fully oriented, in no acute distress. HEAD: Normal with no signs of trauma. EYES: PERRL, extraocular movements intact, sclera anicteric, conjunctiva clear. No ptosis. ENT: Ears normal, nares patent, oropharynx clear without exudates, moist mucous membranes. NECK: Trachea midline, full range of motion, supple. LUNGS: Breath sounds equal, fine rales to bilateral lower extremities, no wheezes, no crackles, no accessory muscle use. HEART: irregular rate and rhythm, S1, S2 without murmur, rub or gallop. ABDOMEN: Soft, nontender, nondistended, normoactive bowel sounds, no guarding, no rebound, no hepatosplenomegaly, no masses. EXTREMITIES: 2+ pulses, warm, well-perfused, +1 pitting edema to billateral lower extremities with scaling to lower extremities NEUROLOGICAL: Cranial nerves II through XII grossly intact. Normal speech, gait not observed. PSYCH: Normal mood, normal affect. SKIN: Warm, dry, normal turgor, no rashes or lesions noted Laboratory Results - last 24 hr 03/02/18 03/02/18 03/02/18 16:30 16:30 19:50 WBC RBC Hgb Hct MCV MCH MCHC RDW Plt Count MPV Absolute Neuts (auto) Neutrophils % Lymphocytes % Monocytes % Eosinophils % Basophils % Nucleated RBC % PTT (Actin FS) 117.0 H Sodium Potassium Chloride Carbon Dioxide Anion Gap BUN Creatinine Creat Clearance w eGFR Random Glucose Calcium Phosphorus Magnesium Total Bilirubin AST ALT Alkaline Phosphatase Creatine Kinase 190 Creatine Kinase Index 2.3 CK-MB (CK-2) 4.4 H Troponin I 0.50 H B-Natriuretic Peptide Total Protein Albumin Triglycerides Cholesterol Total LDL Cholesterol HDL Cholesterol TSH 3.14 10/21/18 10/21/18 10/22/18 22:30 22:30 04:30 WBC RBC Hgb Hct MCV MCH MCHC RDW Plt Count MPV Absolute Neuts (auto) Neutrophils % Lymphocytes % Monocytes % Eosinophils % Basophils % Nucleated RBC % PTT (Actin FS) 59.6 H Sodium 132 L Potassium 3.8 Chloride 98 Carbon Dioxide 30 H Anion Gap 4 L BUN 19 H Creatinine 1.2 Creat Clearance w eGFR 42.50 Random Glucose 106 D Calcium 8.1 L Phosphorus Magnesium Total Bilirubin AST ALT Alkaline Phosphatase Creatine Kinase 147 Creatine Kinase Index CK-MB (CK-2) Troponin I 1.93 H* B-Natriuretic Peptide Total Protein Albumin Triglycerides Cholesterol Total LDL Cholesterol HDL Cholesterol TSH 03/03/18 03/03/18 03/03/18 04:30 04:30 04:30 WBC RBC Hgb Hct MCV MCH MCHC RDW Plt Count MPV Absolute Neuts (auto) Neutrophils % Lymphocytes % Monocytes % Eosinophils % Basophils % Nucleated RBC % PTT (Actin FS) Sodium 140 Potassium 4.0 Chloride 102 Carbon Dioxide 29 Anion Gap 8 BUN 18 Creatinine 1.0 Creat Clearance w eGFR 52.45 Random Glucose 84 Calcium 7.9 L Phosphorus 3.1 Magnesium 1.8 Total Bilirubin 0.4 AST 32 ALT 21 Alkaline Phosphatase 100 Creatine Kinase 105 Creatine Kinase Index CK-MB (CK-2) Troponin I 0.17 H B-Natriuretic Peptide 5551.0 H Total Protein 4.8 L Albumin 2.3 L Triglycerides Cancelled 64 Cholesterol Cancelled 125 Total LDL Cholesterol Cancelled 51 HDL Cholesterol Cancelled 67 H TSH 03/03/18 04:30 WBC 7.4 RBC 3.58 L Hgb 10.9 Hct 33.0 MCV 92.0 MCH 30.4 MCHC 33.0 RDW 13.4 Plt Count 214 MPV 9.0 Absolute Neuts (auto) 4.7 Neutrophils % 64.2 Lymphocytes % 21.0 Monocytes % 10.5 H Eosinophils % 3.6 Basophils % 0.7 Nucleated RBC % 0 PTT (Actin FS) Sodium Potassium Chloride Carbon Dioxide Anion Gap BUN Creatinine Creat Clearance w eGFR Random Glucose Calcium Phosphorus Magnesium Total Bilirubin AST ALT Alkaline Phosphatase Creatine Kinase Creatine Kinase Index CK-MB (CK-2) Troponin I B-Natriuretic Peptide Total Protein Albumin Triglycerides Cholesterol Total LDL Cholesterol HDL Cholesterol TSH Active Medications Generic Name Dose Route Start Last Admin Trade Name Freq PRN Reason Stop Dose Admin Acetaminophen 650 mg 03/01/18 14:31 Tylenol - PO Q4H PRN PAIN Apixaban 5 mg 03/03/18 10:00 Eliquis - PO BID SARAH Aspirin 81 mg 03/02/18 10:00 03/02/18 10:50 Asa - PO 81 mg DAILY SARAH Administration Atorvastatin Calcium 20 mg 03/01/18 22:00 03/02/18 21:29 Lipitor - PO 20 mg HS SARAH Administration Calcium Carbonate/Cholecalciferol 1 tab 03/02/18 10:00 03/02/18 10:50 Os-Arslan 500+D - PO 1 tab DAILY SARAH Administration Emollient Ointment 1 applic 03/01/18 22:00 03/02/18 21:30 Aquaphor - TP 1 applic BID SARAH Administration Furosemide 20 mg 03/03/18 10:00 Lasix Injection - IVPUSH DAILY [facility] Levofloxacin 500 mg in 100 mls @ 100 mls/hr 03/02/18 08:00 03/02/18 08:12 Levaquin 500 Mg Premixed Ivpb - IVPB 100 mls/hr DAILY@0800 [facility] Administration Protocol Metoprolol Tartrate 50 mg 03/01/18 22:00 03/02/18 21:29 Lopressor - PO 50 mg HS SARAH Administration Metoprolol Tartrate 100 mg 03/02/18 10:00 03/02/18 10:50 Lopressor - PO 100 mg DAILY SARAH Administration Multivitamins/Minerals/Vitamin C 1 tab 03/02/18 10:00 03/02/18 10:50 Tab-A-Vit - PO 1 tab DAILY SARAH Administration Oxybutynin Chloride 5 mg 03/01/18 22:00 03/02/18 21:29 Ditropan - PO 5 mg BID SARAH Administration Quinapril HCl 10 mg 03/02/18 10:00 03/02/18 10:00 Accupril - PO 10 mg DAILY SARAH Administration Microbiology 03/01/18 11:10 Urine - Urine Clean Catch Urine Culture - Final NO GROWTH OBTAINED ASSESSMENT/PLAN: 1) cardiovascular New onset A.fib - His cardiac monitoring, rate controlled continue metoprolol - Heparin drip discontinued patient started on Eliquis - echo ef 60-65% moderate mr, tr - cardiology, Dr Akins consulted and following acute diastolic congestive heart failure - strict i/o and daily weight - echo noted - continue lasix 20mg iv, repeat chest xray tommorow elevated troponin - downtrending, secondary to demand hypertension - labile b/p close following hyperlipidemia - continue lipitor 2) pulm ?lll pna - repeat chest xray likely failure - no leukocytosis pt is afebrile - will d/c levaquin and close following F/E/N: - Soft diet: patient does not have her dentures - Monitor electrolytes Prophylaxis: - eliquis - PT evaluated, patient is unable to stand alone Dispo: - Requires continued inpatient care CODE STATUS: FULL CODE Visit type - Emergency Visit Emergency Visit: Yes ED Registration Date: 03/01/18 Care time: The patient presented to the Emergency Department on the above date and was hospitalized for further evaluation of their emergent condition. - New Patient This patient is new to me today: Yes Date on this admission: 03/03/18 - Critical Care Critical Care patient: No - Discharge Referral Referred to [facility] Med P.C.: No
[2018-03-03] MEDS: OXYBUTYNIN CHLORIDE 5 MG TABLET PO SCH ×2 (10:43→22:23)
[2018-03-03] MEDS: CALCIUM 500MG/VIT-D 200 UNITS COMBO TABLET (FP) PO SCH (10:43)
[2018-03-03] MEDS: ASPIRIN 81 MG CHEWABLE TABLETS PO SCH (10:43)
[2018-03-03] MEDS: METOPROLOL TARTRATE 50 MG TABLET (FP) PO SCH ×2 (10:43→22:23)
[2018-03-03] MEDS: MULTIVITAMINS (DAILY MVI) TABLET (FP) PO SCH (10:43)
[2018-03-03] MEDS: QUINAPRIL HCL 10 MG TABLET (FP) PO SCH (10:46)
[2018-03-03] MEDS: MINERAL OIL/PET HY-PHL TOPICAL OINTMENT 454 GM JAR TP SCH ×2 (10:46→22:23)
[2018-03-03] MEDS: FUROSEMIDE 40 MG/4 ML INJECTABLE VIAL IVPUSH SCH (11:49)
[2018-03-03] MEDS: APIXABAN 5 MG TABLET PO SCH ×2 (11:49→22:23)
[2018-03-03] MEDS ORDERED: FUROSEMIDE 40 MG/4 ML INJECTABLE VIAL IVPUSH ONE (14:00)
--- NOTE | 2018-03-03 14:24 | ECHO ---
Name: LEN ELLISON Exam:Adult Echocardiogram Study Date: 03/03/2018 09:18 AM Age: 87 yrs Reason For Study: SOB WEAKNESS ATRIAL FIBRILLATION Height: 60 in Weight: 170 lb BSA: 1.7 m2 MMode/2D Measurements & Calculations IVSd: 0.87 cm Ao root diam: 1.8 cm LVIDd: 3.9 cm LA dimension: 4.4 cm LVIDs: 2.7 cm LVPWd: 0.78 cm EDV(Teich): 64.0 ml ESV(Teich): 27.7 ml Doppler Measurements & Calculations MV E max cory: 112.0 cm/sec MV A max cory: 36.6 cm/sec MV dec slope: 603.1 cm/sec2 MV E/A: 3.1 Ao V2 max: 194.7 cm/sec LV V1 max P.1 mmHg Ao max P.2 mmHg LV V1 mean P.4 mmHg Ao V2 mean: 155.7 cm/sec LV V1 max: 100.7 cm/sec Ao mean P.5 mmHg LV V1 mean: 72.5 cm/sec Ao V2 VTI: 44.1 cm LV V1 VTI: 21.9 cm MR max cory: 382.9 cm/sec TR max cory: 237.6 cm/sec MR max P.6 mmHg TR max P.7 mmHg Procedure A complete two-dimensional transthoracic echocardiogram was performed (2D, M-mode, Doppler and color flow Doppler). Technically limited study. Left Ventricle The left ventricle is normal in size. Left ventricular systolic function is normal. Ejection Fraction = 60- 65%. No regional wall motion abnormalities noted. Right Ventricle The right ventricle is not well visualized. Atria The left atrium is mildly dilated. Right atrial size is normal. Mitral Valve There is mild to moderate mitral annular calcification. There is no mitral regurgitation noted. Tricuspid Valve The tricuspid valve is normal in structure and function. There is mild to moderate tricuspid regurgit ation. Pulmonary artery systolic pressure is at least 25 mmHg assuming RA pressure of 3 mmHg. Aortic Valve There is mild aortic sclerosis.;. No aortic regurgitation is present. Pulmonic Valve The pulmonic valve is not well visualized. Trace to mild pulmonic valvular regurgitation. Great Vessels The aortic root is normal size. Pericardium/Pleura There is no pericardial effusion. Interpretation Summary Technically limited study The left ventricle is normal in size. Left ventricular systolic function is normal. No regional wall motion abnormalities noted. Ejection Fraction = 60-65%. The right ventricle is not well visualized. The left atrium is mildly dilated. Right atrial size is normal. There is mild to moderate mitral annular calcification. There is mild to moderate tricuspid regurgitation. There is mild aortic sclerosis. Trace to mild pulmonic valvular regurgitation. There is no pericardial effusion. Osiel Ross MD 03/03/2018 02:23 PM
[2018-03-03] MEDS ORDERED: MINERAL OIL/PETROLAT/WATER TOPICAL CREAM 454 GM JAR TP PRN (15:02)
[2018-03-03] MEDS: ATORVASTATIN CA 20 MG TABLET (FP) PO SCH (22:22)
[2018-03-04 08:26] LABS: BASO % 0.8 % (0-2.0); EOS % 5.1 % (0-4.5); HEMATOCRIT 34.6 % (32.4-45.2); HEMOGLOBIN 11.3 GM/dl (10.7-15.3); LYMPH % 15.1 % (8-40); MCH 30.4 pg (25.7-33.7); MCHC 32.5 g/dl (32.0-36.0); MEAN CELL VOLUME 93.6 fl (80-96); MEAN PLT VOLUME 8.4 fl (7.5-11.1); MONO % 8.7 % (3.8-10.2); NEUT % 70.3 % (42.8-82.8); PLATELET COUNT 239 K/MM3 (134-434); RDW 12.7 % (11.6-15.6); WHITE BLOOD COUNT 5.6 K/mm3 (4.0-10.8)
[2018-03-04 08:32] LABS: ANION GAP 4 MMOL/L (8-16); BLOOD UREA NITROGEN 16 mg/dl (7-18); CALCIUM 8.1 mg/dl (8.4-10.2); CHLORIDE 98 mmol/L (98-107); CO2 30 mmol/L (22-28); CREATININE 1.1 mg/dl (0.6-1.3); GLUCOSE,RANDOM 85 mg/dl (74-106); MAGNESIUM 1.6 mg/dL (1.8-2.4); POTASSIUM 3.7 mmol/L (3.5-5.1); SODIUM 132 mmol/L (136-145)
[2018-03-04] MEDS ORDERED: PT OWN MED DRAWER 7, Y5N ONE (09:41)
[2018-03-04] MEDS ORDERED: MAGNESIUM SULFATE IN WATER 2 GM/50 ML IVPB IVPB ONE (10:00)
[2018-03-04] MEDS: ASPIRIN 81 MG CHEWABLE TABLETS PO SCH (10:14)
[2018-03-04] MEDS: MULTIVITAMINS (DAILY MVI) TABLET (FP) PO SCH (10:14)
[2018-03-04] MEDS: CALCIUM 500MG/VIT-D 200 UNITS COMBO TABLET (FP) PO SCH (10:14)
[2018-03-04] MEDS: APIXABAN 5 MG TABLET PO SCH ×2 (10:15→21:27)
[2018-03-04] MEDS: METOPROLOL TARTRATE 50 MG TABLET (FP) PO SCH ×2 (10:15→21:28)
[2018-03-04] MEDS: FUROSEMIDE 40 MG/4 ML INJECTABLE VIAL IVPUSH SCH (10:15)
[2018-03-04] MEDS: OXYBUTYNIN CHLORIDE 5 MG TABLET PO SCH ×2 (10:15→21:28)
[2018-03-04] MEDS: QUINAPRIL HCL 10 MG TABLET (FP) PO SCH (10:16)
[2018-03-04] MEDS: MINERAL OIL/PET HY-PHL TOPICAL OINTMENT 454 GM JAR TP SCH ×2 (10:16→21:26)
--- NOTE | 2018-03-04 11:31 | PN ---
Physical Exam: SUBJECTIVE: Patient seen and examined, sitting in bedside recliner denies any chest pain or shortness of breath, wants to get home OBJECTIVE:patient is a 87 year old female with PMHx of HTN, HLD, Arthritis, and urinary incontinence, patient was admitted from the emergency department for elevated troponin and new onset afib. Vital Signs Period Temp Pulse Resp BP Sys/Rhodes Pulse Ox Last 24 Hr 97.3 F-97.9 F 82-90 18-20 110-138/50-62 95-98 GENERAL: The patient is awake, alert, and fully oriented, in no acute distress. HEAD: Normal with no signs of trauma. EYES: PERRL, extraocular movements intact, sclera anicteric, conjunctiva clear. No ptosis. ENT: Ears normal, nares patent, oropharynx clear without exudates, moist mucous membranes. NECK: Trachea midline, full range of motion, supple. LUNGS: Breath sounds equal, clear to auscultation bilaterally, no wheezes, no crackles, no accessory muscle use. HEART: irregular rate and rhythm, S1, S2 without murmur, rub or gallop. ABDOMEN: Soft, nontender, nondistended, normoactive bowel sounds, no guarding, no rebound, no hepatosplenomegaly, no masses. EXTREMITIES: 2+ pulses, warm, well-perfused, no edema. NEUROLOGICAL: Cranial nerves II through XII grossly intact. Normal speech, gait not observed. PSYCH: Normal mood, normal affect. SKIN: Warm, dry, normal turgor, no rashes or lesions noted Laboratory Results - last 24 hr 03/04/18 03/04/18 03/04/18 07:54 07:54 07:54 WBC 5.6 RBC 3.70 Hgb 11.3 Hct 34.6 MCV 93.6 MCH 30.4 MCHC 32.5 RDW 12.7 Plt Count 239 MPV 8.4 Absolute Neuts (auto) 4.0 Neutrophils % 70.3 Lymphocytes % 15.1 Monocytes % 8.7 Eosinophils % 5.1 H Basophils % 0.8 PTT (Actin FS) 35.3 Sodium 132 L Potassium 3.7 Chloride 98 Carbon Dioxide 30 H Anion Gap 4 L BUN 16 Creatinine 1.1 Creat Clearance w eGFR 46.98 Random Glucose 85 Calcium 8.1 L Magnesium 1.6 L Creatine Kinase 48 Troponin I 03/04/18 07:54 WBC RBC Hgb Hct MCV MCH MCHC RDW Plt Count MPV Absolute Neuts (auto) Neutrophils % Lymphocytes % Monocytes % Eosinophils % Basophils % PTT (Actin FS) Sodium Potassium Chloride Carbon Dioxide Anion Gap BUN Creatinine Creat Clearance w eGFR Random Glucose Calcium Magnesium Creatine Kinase Troponin I 0.07 H Active Medications Generic Name Dose Route Start Last Admin Trade Name Hairq PRN Reason Stop Dose Admin Acetaminophen 650 mg 03/01/18 14:31 Tylenol - PO Q4H PRN PAIN Apixaban 5 mg 03/03/18 10:30 03/04/18 10:15 Eliquis - PO 5 mg BID SARAH Administration Aspirin 81 mg 03/02/18 10:00 03/04/18 10:14 Asa - PO 81 mg DAILY SARAH Administration Atorvastatin Calcium 20 mg 03/01/18 22:00 03/03/18 22:22 Lipitor - PO 20 mg HS SARAH Administration Calcium Carbonate/Cholecalciferol 1 tab 03/02/18 10:00 03/04/18 10:14 Os-Arslan 500+D - PO 1 tab DAILY SARAH Administration Emollient Ointment 1 applic 03/01/18 22:00 03/04/18 10:16 Aquaphor - TP 1 applic BID SARAH Administration Furosemide 20 mg 03/03/18 10:30 03/04/18 10:15 Lasix Injection - IVPUSH 20 mg DAILY SARAH Administration Metoprolol Tartrate 50 mg 03/01/18 22:00 03/03/18 22:23 Lopressor - PO 50 mg HS SARAH Administration Metoprolol Tartrate 100 mg 03/02/18 10:00 03/04/18 10:15 Lopressor - PO 100 mg DAILY SARAH Administration Multivitamins/Minerals/Vitamin C 1 tab 03/02/18 10:00 03/04/18 10:14 Tab-A-Vit - PO 1 tab DAILY SARAH Administration Oxybutynin Chloride 5 mg 03/01/18 22:00 03/04/18 10:15 Ditropan - PO 5 mg BID SARAH Administration Quinapril HCl 10 mg 03/02/18 10:00 03/04/18 10:16 Accupril - PO 10 mg DAILY SARAH Administration Microbiology 03/01/18 11:10 Urine - Urine Clean Catch Urine Culture - Final NO GROWTH OBTAINED ASSESSMENT/PLAN: 1) cardiovascular New onset A.fib s/p tavr (2004) - continous cardiac monitoring, rate controlled continue metoprolol -continue eliquis - echo ef 60-65% moderate mr, tr - mri of brain ordered r/o acute cva - cardiology, Dr Akins consulted and following acute diastolic congestive heart failure - strict i/o and daily weight - echo noted - continue lasix 20mg iv, repeat chest xray today elevated troponin - downtrending, secondary to demand hypertension - at goal, continue accupril hyperlipidemia - continue lipitor 2) pulm ?lll pna - repeat chest xray likely failure - no leukocytosis pt is afebrile - observe off abx F/E/N: - Soft diet: patient does not have her dentures - Monitor electrolytes Prophylaxis: - eliquis - PT evaluated, patient is unable to stand alone Dispo: - Requires continued inpatient care CODE STATUS: FULL CODE Visit type - Emergency Visit Emergency Visit: Yes ED Registration Date: 03/01/18 Care time: The patient presented to the Emergency Department on the above date and was hospitalized for further evaluation of their emergent condition. - New Patient This patient is new to me today: Yes Date on this admission: 03/04/18 - Critical Care Critical Care patient: No - Discharge Referral Referred to [facility] Med P.C.: No
--- NOTE | 2018-03-04 18:04 | PN ---
Progress Note, Physician History of Present Illness: Did not tolerate brain MRI as she couldn't lay her head flat. Denies dyspnea on exertion or chest pain, remains rate-controlled afib. - Current Medication List Current Medications: Active Medications Acetaminophen (Tylenol -) 650 mg PO Q4H PRN PRN Reason: PAIN Apixaban (Eliquis -) 5 mg PO BID [facility] Last Admin: 03/04/18 10:15 Dose: 5 mg Aspirin (Asa -) 81 mg PO DAILY [facility] Last Admin: 03/04/18 10:14 Dose: 81 mg Atorvastatin Calcium (Lipitor -) 20 mg PO HS [facility] Last Admin: 03/03/18 22:22 Dose: 20 mg Calcium Carbonate/Cholecalciferol (Os-Arslan 500+D -) 1 tab PO DAILY [facility] Last Admin: 03/04/18 10:14 Dose: 1 tab Emollient Ointment (Aquaphor -) 1 applic TP BID [facility] Last Admin: 03/04/18 10:16 Dose: 1 applic Furosemide (Lasix Injection -) 20 mg IVPUSH DAILY [facility] Last Admin: 03/04/18 10:15 Dose: 20 mg Metoprolol Tartrate (Lopressor -) 50 mg PO HS [facility] Last Admin: 03/03/18 22:23 Dose: 50 mg Metoprolol Tartrate (Lopressor -) 100 mg PO DAILY [facility] Last Admin: 03/04/18 10:15 Dose: 100 mg Multivitamins/Minerals/Vitamin C (Tab-A-Vit -) 1 tab PO DAILY [facility] Last Admin: 03/04/18 10:14 Dose: 1 tab Oxybutynin Chloride (Ditropan -) 5 mg PO BID [facility] Last Admin: 03/04/18 10:15 Dose: 5 mg Quinapril HCl (Accupril -) 10 mg PO DAILY [facility] Last Admin: 03/04/18 10:16 Dose: 10 mg - Objective Vital Signs: Vital Signs Temperature 98.0 F 03/04/18 14:04 Pulse Rate 88 03/04/18 14:04 Respiratory Rate 18 03/04/18 14:04 Blood Pressure 120/59 L 03/04/18 14:04 O2 Sat by Pulse Oximetry (%) 96 03/04/18 14:04 Constitutional: Yes: No Distress, Calm, Thin Neck: Yes: Supple Cardiovascular: Yes: Pulse Irregular Respiratory: Yes: Regular, Diminished Gastrointestinal: Yes: Normal Bowel Sounds, Soft Edema: Yes Edema: LLE: Trace, RLE: Trace Labs: CBC, BMP 03/04/18 07:54 03/04/18 07:54 INR, PTT INR 1.16 (0.82-1.09) 03/01/18 12:00 - ....Imaging Chest X-ray: Report Reviewed (Stable) EKG: Report Reviewed (Tele: Rate-controlled afib) Problem List - Problems (1) Atrial fibrillation Code(s): I48.91 - UNSPECIFIED ATRIAL FIBRILLATION Qualifiers: Atrial fibrillation type: paroxysmal Qualified Code(s): I48.0 - Paroxysmal atrial fibrillation (2) Acute on chronic diastolic heart failure Code(s): I50.33 - ACUTE ON CHRONIC DIASTOLIC (CONGESTIVE) HEART FAILURE (3) Demand ischemia Code(s): I24.8 - OTHER FORMS OF ACUTE ISCHEMIC HEART DISEASE (4) Hypertensive cardiomegaly with heart failure Code(s): I11.0 - HYPERTENSIVE HEART DISEASE WITH HEART FAILURE (5) Hyperlipidemia Code(s): E78.5 - HYPERLIPIDEMIA, UNSPECIFIED Qualifiers: Hyperlipidemia type: pure hypercholesterolemia Qualified Code(s): E78.00 - Pure hypercholesterolemia, unspecified; E78.0 - Pure hypercholesterolemia (6) Weakness Code(s): R53.1 - WEAKNESS (7) Hyponatremia Code(s): E87.1 - HYPO-OSMOLALITY AND HYPONATREMIA Assessment/Plan Echo: Normal LV szie and fxn ef 60-65% mild moderate TR, mild LAE 1. Newly diagnosed afib [id number] 2. CAD, demand ischemia 3. Acute on chronic diastolic failure 4. Weakness, r/o stroke 5. Doubt PNA 6. HTN/HCVD 7. Hyperlipidemia 8. Hyponatremia P:1. Could not tolerate brain MRI 2. Continue Eliquis 5 bid (wt>60 kg, Cr<1.0), d/c ASA 81 qd 3. Trops have peaked 4. Oral diuresis with monitor diuretic response, renal function and electrolytes 5. Observe off abx 6. Continue Accupril 10 qd, Lopressor 100/50 qd, Lipitor 20 qd and Accupril 10 qd as hemodynamics tolerate 7. Ischemia evaluation with stress testing may be performed as outpatient, thank you for consultative opportunity 8. D/c planning with f/u in office
[2018-03-04] MEDS: ATORVASTATIN CA 20 MG TABLET (FP) PO SCH (21:28)
[2018-03-05 09:16] LABS: HEMATOCRIT 34.9 % (32.4-45.2); HEMOGLOBIN 11.7 GM/dl (10.7-15.3); MCH 31.6 pg (25.7-33.7); MCHC 33.5 g/dl (32.0-36.0); MEAN CELL VOLUME 94.2 fl (80-96); MEAN PLT VOLUME 8.3 fl (7.5-11.1); PLATELET COUNT 248 K/MM3 (134-434); RBC 3.71 M/mm3 (3.60-5.2); RDW 12.4 % (11.6-15.6); WHITE BLOOD COUNT 7.2 K/mm3 (4.0-10.8)
[2018-03-05] MEDS ORDERED: FUROSEMIDE 20 MG TABLET (FP) PO SCH (10:00)
[2018-03-05] MEDS: MINERAL OIL/PET HY-PHL TOPICAL OINTMENT 454 GM JAR TP SCH (10:27)
[2018-03-05] MEDS: CALCIUM 500MG/VIT-D 200 UNITS COMBO TABLET (FP) PO SCH (10:27)
[2018-03-05] MEDS: METOPROLOL TARTRATE 50 MG TABLET (FP) PO SCH (10:27)
[2018-03-05] MEDS: APIXABAN 5 MG TABLET PO SCH (10:27)
[2018-03-05] MEDS: QUINAPRIL HCL 10 MG TABLET (FP) PO SCH (10:27)
[2018-03-05] MEDS: OXYBUTYNIN CHLORIDE 5 MG TABLET PO SCH (10:27)
[2018-03-05] MEDS: MULTIVITAMINS (DAILY MVI) TABLET (FP) PO SCH (10:27)
--- NOTE | 2018-03-05 13:24 | DS ---
Physical Exam: SUBJECTIVE: Patient seen and examined, siting in bedside recliner eating breakfast, reports feeling well, denies any chest pain or shortness of breath. OBJECTIVE: 87 year old female with a PMH of HTN, HLD, Arthritis, and Urinary incontinence presented to the ED c/o right leg weakness that started this AM. Patient sleeps in a recliner at her home where she lives alone. When she woke up this morning she was unable to stand up from the chair. When the neighbors, who are her health care proxies, came by to check on her, she was still unable to get up from the chair. They also observed her wearing a hospital gown from from a previous visit to 2 weeks prior for a fall. She was brought into the ED and found to have slightly elevated WBC and a CXR +LLL infiltrate, she was given a dose of Levaquin 750 mg IV. Her potassium was slightly depleted at 3.3 and she was given [address] of head, ECG and UA unremarkable. Vital Signs Period Temp Pulse Resp BP Sys/Rhodes Pulse Ox Last 24 Hr 97.9 F-98.1 F 73-96 18-19 120-130/56-62 96-96 PHYSICAL EXAM GENERAL: The patient is awake, alert, and fully oriented, in no acute distress. HEAD: Normal with no signs of trauma. EYES: PERRL, extraocular movements intact, sclera anicteric, conjunctiva clear. ENT: Ears normal, nares patent, oropharynx clear without exudates, moist mucous membranes. NECK: Trachea midline, full range of motion, supple. LUNGS: Breath sounds equal, clear to auscultation bilaterally, no wheezes, no crackles, no accessory muscle use. HEART: Regular rate and rhythm, S1, S2 without murmur, rub or gallop. ABDOMEN: Soft, nontender, nondistended, normoactive bowel sounds, no guarding, no rebound, no hepatosplenomegaly, no masses. EXTREMITIES: 2+ pulses, warm, well-perfused, no edema. NEUROLOGICAL: Cranial nerves II through XII grossly intact. Normal speech, gait not observed. PSYCH: Normal mood, normal affect. SKIN: Warm, dry, normal turgor, no rashes or lesions noted. LABS Laboratory Results - last 24 hr 03/04/18 03/05/18 03/05/18 18:16 08:15 08:15 WBC 7.2 RBC 3.71 Hgb 11.7 Hct 34.9 MCV 94.2 MCH 31.6 MCHC 33.5 RDW 12.4 Plt Count 248 MPV 8.3 PTT (Actin FS) 31.2 Stool Occult Blood Negative CMP Sodium 132 mmol/L (136-145) L 03/04/18 07:54 Potassium 3.7 mmol/L (3.5-5.1) 03/04/18 07:54 Chloride 98 mmol/L (98-107) 03/04/18 07:54 Carbon Dioxide 30 mmol/L (22-28) H 03/04/18 07:54 Anion Gap 4 MMOL/L (8-16) L 03/04/18 07:54 BUN 16 mg/dl (7-18) 03/04/18 07:54 Creatinine 1.1 mg/dl (0.6-1.3) 03/04/18 07:54 Creat Clearance w eGFR 46.98 (>60) 03/04/18 07:54 Random Glucose 85 mg/dl (74-106) 03/04/18 07:54 Calcium 8.1 mg/dl (8.4-10.2) L 03/04/18 07:54 Phosphorus 3.1 mg/dL (2.5-4.9) 03/03/18 04:30 Magnesium 1.6 mg/dL (1.8-2.4) L 03/04/18 07:54 Total Bilirubin 0.4 mg/dL (0.2-1) 03/03/18 04:30 AST 32 U/L (15-37) 03/03/18 04:30 ALT 21 U/L (13-61) 03/03/18 04:30 Alkaline Phosphatase 100 U/L (45-117) 03/03/18 04:30 Creatine Kinase 48 IU/L (26-192) 03/04/18 07:54 Creatine Kinase Index 2.3 % (0.0-5.0) 03/02/18 16:30 CK-MB (CK-2) 4.4 ng/mL (0.3-4.0) H 03/02/18 16:30 Troponin I 0.07 ng/ml (0.00-0.06) H 03/04/18 07:54 B-Natriuretic Peptide 5551.0 pg/ml (5-450) H 03/03/18 04:30 Total Protein 4.8 g/dl (6.4-8.2) L 03/03/18 04:30 Albumin 2.3 g/dl (3.4-5.0) L 03/03/18 04:30 Triglycerides 64 mg/dL (0-150) 03/03/18 04:30 Cholesterol 125 mg/dL (50-200) 03/03/18 04:30 Total LDL Cholesterol 51 mg/dL (5-100) 03/03/18 04:30 HDL Cholesterol 67 mg/dL (40-60) H 03/03/18 04:30 TSH 3.14 uIU/ml (0.358-3.74) 03/02/18 16:30 Microbiology 03/01/18 11:10 Urine - Urine Clean Catch Urine Culture - Final NO GROWTH OBTAINED IMAGING chest xray: left lower lobe effusion/infilitrate head ct:no acute pathology echo: 60-65% moderate MR, TR HOSPITAL COURSE: 1)New onset A.fib s/p tavr (2004) - continuos cardiac monitoring, rate controlled on metoprolol - patient was started on eliquis - unable to obtain mri, patient is unable to tolerate lying down for long period of time. - cardiology, Dr Akins consulted and following acute diastolic congestive heart failure - strict i/o and daily weight - echo noted - patient was diuressed and is now euvolemic, transitioned to PO lasix elevated troponin - downtrending, secondary to demand hypertension - at goal, continued accupril hyperlipidemia - continue lipitor 2) pulm ?lll pna - repeat chest xray likely failure - no leukocytosis pt is afebrile - observed off abx PLAN - transfer to sn[facility] for short term rehab Date of Admission:03/01/18 Date of Discharge: 03/05/18 Minutes to complete discharge: 45 Discharge Summary Reason For Visit: CAN'T WALK Current Active Problems Acute on chronic diastolic heart failure (Acute) Atrial fibrillation (Acute) Demand ischemia (Acute) Hyperlipidemia (Acute) Hypertensive cardiomegaly with heart failure (Acute) Hyponatremia (Acute) Pneumonia (Acute) Weakness (Acute) Condition: Improved - Instructions Referrals: Noel Waddell [Primary Care Provider] - Antoine Akisn MD [Staff Physician] - [facility] - Home Medications Comprehensive Discharge Medication List: Ambulatory Orders Aspirin [ASA -] 81 mg PO DAILY 12/16/12 Simvastatin [Zocor -] 40 mg PO HS 12/16/12 Calcium Carb, Citrate/Vit D3 [Calcium + D3 ER Tablet] 1 each PO DAILY 03/01/18 Metoprolol Tartrate [Lopressor] 50 mg PO HS 03/01/18 Metoprolol Tartrate [Lopressor] 100 mg PO DAILY 03/01/18 Multivit,Calc,Mins/Iron/Folic [One-A-Day Women's] 1 each PO DAILY 03/01/18 Oxybutynin Chloride [Ditropan -] 5 mg PO BID 03/01/18 Quinapril HCl 10 mg PO DAILY 03/01/18 - Discharge Referral Referred to [facility] Med P.C.: No
[2018-03-05 14:16] VITALS: BP 121/69; PULSE 85; TEMP 98.2
== END 2018-03-05 16:15 | DRG 308 ==
LOC: SUPCPDRO 10:42 → FER 10:42 → FM/S 13:35
PROVIDERS: ADMIT Internal Medicine; ATTEND Nurse Practitioner Family
DX: I48.91 Unspecified atrial fibrillation (principal); I50.33 Acute on chronic diastolic (congestive) heart failure; I24.8 Other forms of acute ischemic heart disease; E87.1 Hypo-osmolality and hyponatremia; E78.5 Hyperlipidemia, unspecified; I25.10 Atherosclerotic heart disease of native coronary artery without angina pectoris; R32 Unspecified urinary incontinence; M19.90 Unspecified osteoarthritis, unspecified site; I10 Essential (primary) hypertension; E87.6 Hypokalemia; I11.0 Hypertensive heart disease with heart failure; Q80.9 Congenital ichthyosis, unspecified; Z96.653 Presence of artificial knee joint, bilateral; Z95.1 Presence of aortocoronary bypass graft; Z95.2 Presence of prosthetic heart valve
CPT/HCPCS: 36415; 70450-TC; 71045-TC-FY; 80048; 80053; 80061; 81003; 81015; 82272; 82550; 82553; 83721; 83735; 83880; 84100; 84443; 84484; 85025; 85027; 85610; 85730; 87086; 93005; 93306-TC; 97116-GP; 97162-GP; 99285-25; J1644